=== PATIENT | female | born 1970 | race Caucasian/White ===

== ENCOUNTER 2018-03-29 05:36 | Emergency (ER) | payer BC ==
[2018-03-29] MEDS ORDERED: METOCLOPRAMIDE 10 MG/2mL INJ ONE (06:19)
[2018-03-29] MEDS ORDERED: DIPHENHYDRAMINE 50 MG/ML VIAL ONE (06:20)
[2018-03-29] MEDS ORDERED: NA CHLORIDE 0.9% 1,000 ML ONE (06:20)
[2018-03-29] MEDS ORDERED: KETOROLAC 30 MG/ML INJ ONE (06:20)
--- NOTE | 2018-03-29 07:18 | ER ---
Nurse's Notes [facility] Name: Lorraine Ernandez Age: 47 yrs Sex: Female : 1970 Arrival Date: 03/29/2018 Time: 05:52 Bed 16 Private MD: Diagnosis: Migraine Presentation: 03/29 06:06 Presenting complaint: Patient states: MIGRAINE. Transition of care: patient was not bp received from another setting of care. Onset of symptoms was March 29, 2018 at 04:00. Risk Assessment: Do you want to hurt yourself or someone else? Patient reports no desire to harm self or others. Initial Sepsis Screen: Does the patient meet any 2 criteria? No. Patient's initial sepsis screen is negative. Does the patient have a suspected source of infection? No. Patient's initial sepsis screen is negative. Care prior to arrival: None. 06:06 Method Of Arrival: Ambulatory bp 06:06 Acuity: YU 5 bp Triage Assessment: 06:08 Headache History: The patient has had previous headaches and this one is similar to bp previous episodes. General: Appears in no apparent distress. uncomfortable, obese, Behavior is cooperative, appropriate for age, anxious. Pain: Complains of pain in head Pain currently is 10 out of 10 on a pain scale. Pain began 2 hours ago. Also complains of nausea. EENT: No deficits noted. Neuro: Level of Consciousness is awake, alert, obeys commands, Oriented to person, place, time, situation, Appropriate for age. Cardiovascular: No deficits noted. Respiratory: Airway is patent Respiratory effort is even, unlabored, Respiratory pattern is regular, symmetrical. GI: Reports nausea. : No signs and/or symptoms were reported regarding the genitourinary system. Derm: No deficits noted. Musculoskeletal: Circulation, motion, and sensation intact. Range of motion: intact in all extremities. CIRCUS TRAINER: 06:08 LMP N/A - Hysterectomy bp Historical: - Allergies: 06:08 No Known Allergies; bp - Home Meds: 06:08 Topamax Oral [Active]; Paxil Oral [Active]; bp - PMHx: 06:08 Migraines; Depression; bp - PSHx: 06:08 Hysterectomy; Cholecystectomy; bp - Immunization history:: Adult Immunizations up to date. - Social history:: Smoking status: Patient/guardian denies using tobacco. - Ebola Screening: : Patient negative for fever greater than or equal to 101.5 degrees Fahrenheit, and additional compatible Ebola Virus Disease symptoms Patient denies exposure to infectious person Patient denies travel to an Ebola-affected area in the 21 days before illness onset No symptoms or risks identified at this time. Screenin:11 Abuse screen: Denies threats or abuse. Denies injuries from another. Nutritional bp screening: No deficits noted. Tuberculosis screening: No symptoms or risk factors identified. Fall Risk None identified. Assessment: 06:11 General: SEE TRIAGE NOTE. Pain: Complains of pain in head Pain currently is 10 out of bp 10 on a pain scale. 06:36 Reassessment: Patient appears in no apparent distress at this time. No changes from jd3 previously documented assessment. Patient and/or family updated on plan of care and expected duration. Pain level reassessed. Patient is alert, oriented x 3, equal unlabored respirations, skin warm/dry/pink. 07:32 Reassessment: Patient appears in no apparent distress at this time. Patient and/or iw family updated on plan of care and expected duration. Pain level reassessed. Patient is alert, oriented x 3, equal unlabored respirations, skin warm/dry/pink. Patient states feeling better. Patient states symptoms have improved. Vital Signs: 06:08 BP 110 / 67; Pulse 75; Resp 16; Temp 97.4; Pulse Ox 98% ; Weight 72.57 kg; Height 5 ft. bp 1 in. (154.94 cm); 07:32 BP 108 / 67; Pulse 60; Resp 16; Pulse Ox 100% on R/A; Pain 3/10; iw 06:08 Body Mass Index 30.23 (72.57 kg, 154.94 cm) bp Rebel Coma Score: 06:15 Eye Response: spontaneous(4). Verbal Response: oriented(5). Motor Response: obeys kb commands(6). Total: 15. ED Course: 05:52 Patient arrived in ED. es 05:59 Den Pandya, RN is Primary Nurse. bp 06:05 Primary Nurse role handed off by Den Pandya, NEHA jd3 06:05 Alberto Escobedo RN is Primary Nurse. jd3 06:07 Triage completed. bp 06:09 Lexie Guidry FNP-C is PHCP. kb 06:09 Chaz Aly MD is Attending Physician. kb 06:11 Arm band placed on. bp 06:11 Patient has correct armband on for positive identification. Bed in low position. Call bp light in reach. Side rails up X2. Adult w/ patient. 06:30 Inserted saline lock: 20 gauge in right antecubital area, using aseptic technique. jd3 07:34 Primary Nurse role handed off by Alberto Escobedo RN iw 07:34 Cecilia Joyner, NEHA is Primary Nurse. iw Administered Medications: 06:34 Drug: NS 0.9% 1000 ml Route: IV; Rate: 1000 ml; Site: right antecubital; jd3 07:32 Follow up: IV Status: Completed infusion iw 06:35 Drug: TORadol 30 mg Route: IVP; Site: right antecubital; jd3 07:32 Follow up: Response: No adverse reaction; Pain is decreased iw 06:35 Drug: Benadryl 12.5 mg Route: IVP; Site: right antecubital; jd3 06:35 Drug: Reglan 10 mg Route: IVP; Site: right antecubital; jd3 07:33 Follow up: Response: No adverse reaction; Pain is decreased iw Outcome: 07:17 Discharge ordered by . kb 07:34 Patient left the ED. iw Signatures: Lexie Guidry, PRESS MACHINE FEEDER-C PRESS MACHINE FEEDER-Nery Amin Irene, NEHA SOLOMON iw Alberto Escobedo RN RN jDen Magana RN RN bp
--- NOTE | 2018-03-29 07:18 | EDPHYS ---
Physician Documentation [facility] Name: Lorraine Ernandez Age: 47 yrs Sex: Female : 1970 Arrival Date: 03/29/2018 Time: 05:52 Bed 16 Private MD: ED Physician Chaz Aly HPI: 03/29 06:15 This 47 yrs old Female presents to ER via Ambulatory with complaints of kb Headache. 06:15 The patient complains of pain to the forehead. The patient describes the headache as kb constant. Onset: The symptoms/episode began/occurred this morning, at 04:30. Associated signs and symptoms: Pertinent positives: nausea, Photophobia Pertinent negatives: altered mental status, dizziness, fever, malaise, neck stiffness, paresthesias, rash, sinus congestion, sinus tenderness, vision changes, vision loss, vomiting, weakness, vertigo. Severity of symptoms: At its worst the pain was moderate, in the emergency department the pain is unchanged. Headache History: The patient has had previous headaches and this one is similar to previous episodes. The symptoms are alleviated by nothing. the symptoms are aggravated by lights. The patient has experienced similar episodes in the past, chronically. The patient has not recently seen a physician. Takes topamax for migraines, but no relief this morning. SPINNER HAND: 06:08 LMP N/A - Hysterectomy bp Historical: - Allergies: 06:08 No Known Allergies; bp - Home Meds: 06:08 Topamax Oral [Active]; Paxil Oral [Active]; bp - PMHx: 06:08 Migraines; Depression; bp - PSHx: 06:08 Hysterectomy; Cholecystectomy; bp - Immunization history:: Adult Immunizations up to date. - Social history:: Smoking status: Patient/guardian denies using tobacco. - Ebola Screening: : Patient negative for fever greater than or equal to 101.5 degrees Fahrenheit, and additional compatible Ebola Virus Disease symptoms Patient denies exposure to infectious person Patient denies travel to an Ebola-affected area in the 21 days before illness onset No symptoms or risks identified at this time. ROS: 06:12 Constitutional: Negative for fever, chills, and weight loss, Eyes: Negative for injury, kb pain, redness, and discharge, ENT: Negative for injury, pain, and discharge, Neck: Negative for injury, pain, and swelling, Cardiovascular: Negative for chest pain, palpitations, and edema, Respiratory: Negative for shortness of breath, cough, wheezing, and pleuritic chest pain, Back: Negative for injury and pain, : Negative for injury, bleeding, discharge, and swelling, MS/Extremity: Negative for injury and deformity, Skin: Negative for injury, rash, and discoloration. 06:12 Abdomen/GI: Positive for nausea, Negative for abdominal pain, vomiting, diarrhea. 06:12 Neuro: Positive for headache. Exam: 06:12 Constitutional: This is a well developed, well nourished patient who is awake, alert, kb and in no acute distress. Head/Face: Normocephalic, atraumatic. Eyes: Pupils equal round and reactive to light, extra-ocular motions intact. Lids and lashes normal. Conjunctiva and sclera are non-icteric and not injected. Cornea within normal limits. Periorbital areas with no swelling, redness, or edema. ENT: Nares patent. No nasal discharge, no septal abnormalities noted. Tympanic membranes are normal and external auditory canals are clear. Oropharynx with no redness, swelling, or masses, exudates, or evidence of obstruction, uvula midline. Mucous membranes moist. Neck: Trachea midline, no thyromegaly or masses palpated, and no cervical lymphadenopathy. Supple, full range of motion without nuchal rigidity, or vertebral point tenderness. No Meningismus. Chest/axilla: Normal chest wall appearance and motion. Nontender with no deformity. No lesions are appreciated. Cardiovascular: Regular rate and rhythm with a normal S1 and S2. No gallops, murmurs, or rubs. Normal PMI, no JVD. No pulse deficits. Respiratory: Lungs have equal breath sounds bilaterally, clear to auscultation and percussion. No rales, rhonchi or wheezes noted. No increased work of breathing, no retractions or nasal flaring. Abdomen/GI: Soft, non-tender, with normal bowel sounds. No distension or tympany. No guarding or rebound. No evidence of tenderness throughout. Skin: Warm, dry with normal turgor. Normal color with no rashes, no lesions, and no evidence of cellulitis. MS/ Extremity: Pulses equal, no cyanosis. Neurovascular intact. Full, normal range of motion. Neuro: Awake and alert, GCS 15, oriented to person, place, time, and situation. Cranial nerves II-XII grossly intact. Motor strength 5/5 in all extremities. Sensory grossly intact. Cerebellar exam normal. Normal gait. Vital Signs: 06:08 BP 110 / 67; Pulse 75; Resp 16; Temp 97.4; Pulse Ox 98% ; Weight 72.57 kg; Height 5 ft. bp 1 in. (154.94 cm); 07:32 BP 108 / 67; Pulse 60; Resp 16; Pulse Ox 100% on R/A; Pain 3/10; iw 06:08 Body Mass Index 30.23 (72.57 kg, 154.94 cm) bp Rebel Coma Score: 06:15 Eye Response: spontaneous(4). Verbal Response: oriented(5). Motor Response: obeys kb commands(6). Total: 15. MDM: 06:09 Patient medically screened. kb 06:15 Data reviewed: vital signs, nurses notes. Data interpreted: Pulse oximetry: on room air kb is 98 %. Interpretation: normal. Counseling: I had a detailed discussion with the patient and/or guardian regarding: the historical points, exam findings, and any diagnostic results supporting the discharge/admit diagnosis, the need for outpatient follow up, a family practitioner, a neurologist, to return to the emergency department if symptoms worsen or persist or if there are any questions or concerns that arise at home. 07:18 Response to treatment: the patient's symptoms have resolved after treatment, the patient's pain is gone. 03/29 06:12 Order name: IV Start; Complete Time: 06:34 Administered Medications: 06:34 Drug: NS 0.9% 1000 ml Route: IV; Rate: 1000 ml; Site: right antecubital; jd3 07:32 Follow up: IV Status: Completed infusion iw 06:35 Drug: TORadol 30 mg Route: IVP; Site: right antecubital; jd3 07:32 Follow up: Response: No adverse reaction; Pain is decreased iw 06:35 Drug: Benadryl 12.5 mg Route: IVP; Site: right antecubital; jd3 06:35 Drug: Reglan 10 mg Route: IVP; Site: right antecubital; jd3 07:33 Follow up: Response: No adverse reaction; Pain is decreased iw Disposition: 12:38 Co-signature as Attending Physician, Chaz Aly MD I agree with the assessment and wa plan of care. Disposition: 03/29/18 07:17 Discharged to Home. Impression: Migraine. - Condition is Stable. - Discharge Instructions: Migraine Headache, [id number]. - Medication Reconciliation Form, Thank You Letter, Antibiotic Education, Prescription Opioid Use, Work release form form. - Follow up: Emergency Department; When: As needed; Reason: Worsening of condition. Follow up: Private Physician; When: 2 - 3 days; Reason: Recheck today's complaints, Continuance of care, Re-evaluation by your physician. Signatures: Lexie Guidry, OFFICE MACHINES TEACHER-C OFFICE MACHINES TEACHER-Ckb Cecilia Joyner, RN RN Chaz Duong MD MD wa Davies, Jonathon RN RN jDen Magana RN RN bp Corrections: (The following items were deleted from the chart) 06:15 06:12 Neuro: Positive for headache, stephan 07:34 07:17 03/29/2018 07:17 Discharged to Home. Impression: Migraine. Condition is Stable. iw Forms are Medication Reconciliation Form, Thank You Letter, Antibiotic Education, Prescription Opioid Use. Follow up: Emergency Department; When: As needed; Reason: Worsening of condition. Follow up: Private Physician; When: 2 - 3 days; Reason: Recheck today's complaints, Continuance of care, Re-evaluation by your physician. kb
== END 2018-03-29 07:34 | disposition home or self-care (01) ==
LOC: ER 05:36
DX: G43.909 Migraine, unspecified, not intractable, without status migrainosus (principal); F32.9 Major depressive disorder, single episode, unspecified
CPT/HCPCS: 96361; 96374; 96375; 99283; J2765; J7030

== ENCOUNTER 2018-07-05 05:27 | Emergency (ER) | payer BC ==
[2018-07-05] MEDS ORDERED: KETOROLAC 30 MG/ML INJ ONE (06:22)
[2018-07-05] MEDS ORDERED: PROMETHAZINE 25 MG TABLET ONE (06:22)
--- NOTE | 2018-07-05 06:26 | EDPHYS ---
Physician Documentation [facility] Name: Lorraine Ernandez Age: 47 yrs Sex: Female : 1970 Arrival Date: 07/05/2018 Time: 05:30 Bed 7 Private MD: ED Physician Mahad Ramirez HPI: 07/05 06:33 This 47 yrs old Female presents to ER via Ambulatory with complaints of snw Headache. 06:33 The patient complains of pain to the right eye and left eye. The patient describes the snw headache as pounding. Onset: The symptoms/episode began/occurred gradually, yesterday. Associated signs and symptoms: Pertinent positives: nausea. Severity of symptoms: At its worst the pain was moderate. Headache History: The patient has had previous headaches and this one is similar to previous episodes. The symptoms are alleviated by remaining still. The patient has experienced similar episodes in the past. It is unknown whether or not the patient has recently seen a physician. TEST RIDER: 05:38 LMP N/A - Hysterectomy ak1 Historical: - Allergies: 05:42 No Known Allergies; ak1 - Home Meds: 05:42 Paxil Oral [Active]; Topamax Oral [Active]; ak1 - PMHx: 05:42 Depression; Migraines; ak1 - PSHx: 05:42 Hysterectomy; Cholecystectomy; Bladder suspension; Lithotripsy; ak1 - Immunization history:: Adult Immunizations unknown. - Social history:: Smoking status: Patient/guardian denies using tobacco. - Ebola Screening: : No symptoms or risks identified at this time. ROS: 06:32 Constitutional: Negative for fever, chills, and weight loss, Eyes: Negative for injury, snw pain, redness, and discharge, ENT: Negative for injury, pain, and discharge, Neck: Negative for injury, pain, and swelling, Cardiovascular: Negative for chest pain, palpitations, and edema, Respiratory: Negative for shortness of breath, cough, wheezing, and pleuritic chest pain, Abdomen/GI: Negative for abdominal pain, nausea, vomiting, diarrhea, and constipation, Back: Negative for injury and pain, : Negative for injury, bleeding, discharge, and swelling, MS/Extremity: Negative for injury and deformity, Skin: Negative for injury, rash, and discoloration, Psych: Negative for depression, anxiety, suicide ideation, homicidal ideation, and hallucinations. 06:32 Neuro: Positive for headache. Exam: 06:32 Constitutional: This is a well developed, well nourished patient who is awake, alert, snw and in no acute distress. Head/Face: Normocephalic, atraumatic. Eyes: Pupils equal round and reactive to light, extra-ocular motions intact. Lids and lashes normal. Conjunctiva and sclera are non-icteric and not injected. Cornea within normal limits. Periorbital areas with no swelling, redness, or edema. ENT: Nares patent. No nasal discharge, no septal abnormalities noted. Tympanic membranes are normal and external auditory canals are clear. Oropharynx with no redness, swelling, or masses, exudates, or evidence of obstruction, uvula midline. Mucous membranes moist. Neck: Trachea midline, no thyromegaly or masses palpated, and no cervical lymphadenopathy. Supple, full range of motion without nuchal rigidity, or vertebral point tenderness. No Meningismus. Chest/axilla: Normal chest wall appearance and motion. Nontender with no deformity. No lesions are appreciated. Cardiovascular: Regular rate and rhythm with a normal S1 and S2. No gallops, murmurs, or rubs. Normal PMI, no JVD. No pulse deficits. Respiratory: Lungs have equal breath sounds bilaterally, clear to auscultation and percussion. No rales, rhonchi or wheezes noted. No increased work of breathing, no retractions or nasal flaring. Abdomen/GI: Soft, non-tender, with normal bowel sounds. No distension or tympany. No guarding or rebound. No evidence of tenderness throughout. Back: No spinal tenderness. No costovertebral tenderness. Full range of motion. Skin: Warm, dry with normal turgor. Normal color with no rashes, no lesions, and no evidence of cellulitis. MS/ Extremity: Pulses equal, no cyanosis. Neurovascular intact. Full, normal range of motion. Neuro: Awake and alert, GCS 15, oriented to person, place, time, and situation. Cranial nerves II-XII grossly intact. Motor strength 5/5 in all extremities. Sensory grossly intact. Cerebellar exam normal. Normal gait. Psych: Awake, alert, with orientation to person, place and time. Behavior, mood, and affect are within normal limits. Vital Signs: 05:38 BP 107 / 59; Pulse 94; Resp 18; Temp 97.2(TE); Pulse Ox 98% on R/A; Weight 74.84 kg ak1 (R); Height 5 ft. 1 in. (154.94 cm) (R); Pain 7/10; 06:20 BP 98 / 63; Pulse 61; Resp 18; Pulse Ox 97% on R/A; aa1 05:38 Body Mass Index 31.18 (74.84 kg, 154.94 cm) ak1 Rebel Coma Score: 06:33 Eye Response: spontaneous(4). Verbal Response: oriented(5). Motor Response: obeys snw commands(6). Total: 15. MDM: 05:59 Patient medically screened. snw 06:33 Data reviewed: vital signs, nurses notes. Data interpreted: Pulse oximetry: on room air snw is 97 %. Interpretation: normal. Counseling: I had a detailed discussion with the patient and/or guardian regarding: the historical points, exam findings, and any diagnostic results supporting the discharge/admit diagnosis, the need for outpatient follow up, to return to the emergency department if symptoms worsen or persist or if there are any questions or concerns that arise at home. Special discussion: Based on the history and exam findings, there is no indication for further emergent testing or inpatient evaluation. I discussed with the patient/guardian the need to see the neurologist for further evaluation of the symptoms. I discussed with the patient/guardian the need to see the primary care provider for further evaluation of the symptoms. Administered Medications: 06:20 Drug: TORadol 60 mg Route: IM; Site: left gluteus; aa1 06:48 Follow up: Response: No adverse reaction; Pain is decreased tl2 06:20 Drug: Phenergan 25 mg Route: PO; aa1 06:48 Follow up: Response: No adverse reaction tl2 Disposition: 07/05/18 06:20 Discharged to Home. Impression: Headache, Reaction to severe stress, unspecified. - Condition is Stable. - Discharge Instructions: Migraine Headache. - Prescriptions for orphenadrine citrate 100 mg Oral Tablet Sustained Release - take 1 tablet by ORAL route 2 times per day As needed; 20 tablet. promethazine 25 mg Oral Tablet - take 1 tablet by ORAL route every 6 hours As needed; 20 tablet. - Work release form, Medication Reconciliation Form, Thank You Letter, Antibiotic Education, Prescription Opioid Use form. - Follow up: Private Physician; When: 2 - 3 days; Reason: Recheck today's complaints, Continuance of care, Re-evaluation by your physician. Follow up: Emergency Department; When: As needed; Reason: Worsening of condition. Addendum: 07/08/2018 10:38 Co-signature as Attending Physician, Mahad Ramirez MD. g s Signatures: Lore Zaman RN RN aa1 Adelina Doran, STUDIO ARTIST-C STUDIO ARTIST-Csnw Maddie Ghosh RN RN ak1 Oly Oropeza RN RN tl2 Mahad Ramirez MD MD Corrections: (The following items were deleted from the chart) 07/05 06:48 06:20 07/05/2018 06:20 Discharged to Home. Impression: Headache; Reaction to severe tl2 stress, unspecified. Condition is Stable. Forms are Medication Reconciliation Form, Thank You Letter, Antibiotic Education, Prescription Opioid Use. Follow up: Private Physician; When: 2 - 3 days; Reason: Recheck today's complaints, Continuance of care, Re-evaluation by your physician. Follow up: Emergency Department; When: As needed; Reason: Worsening of condition. snw
--- NOTE | 2018-07-05 06:26 | ER ---
Nurse's Notes [facility] Name: Lorraine Ernandez Age: 47 yrs Sex: Female : 1970 Arrival Date: 07/05/2018 Time: 05:30 Bed 7 Private MD: Diagnosis: Headache;Reaction to severe stress, unspecified Presentation: 07/05 05:39 Presenting complaint: Patient states: headache constant behind her temples. pt with hx ak1 migraines. pt stated pain started yesterday after getting "pissed off at work and having issues with my gf" pt c/o nausea, denies vomiting. Transition of care: patient was not received from another setting of care. Onset of symptoms was July 04, 2018. Risk Assessment: Do you want to hurt yourself or someone else? Patient reports no desire to harm self or others. Initial Sepsis Screen: Does the patient meet any 2 criteria? No. Patient's initial sepsis screen is negative. Does the patient have a suspected source of infection? No. Patient's initial sepsis screen is negative. Care prior to arrival: None. 05:39 Method Of Arrival: Ambulatory ak1 05:39 Acuity: YU 3 ak1 Triage Assessment: 05:42 Headache History: The patient has had previous headaches and this one is similar to ak1 previous episodes. General: Appears in no apparent distress. Behavior is calm, cooperative. Pain: Pain currently is 7 out of 10 on a pain scale. Pain began 1 day ago. Also complains of photophobia. 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 Gait is steady, Speech is normal, Facial symmetry appears normal. 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 - Social history:: Smoking status: Patient/guardian denies using tobacco. - Ebola Screening: : No symptoms or risks identified at this time. Screenin:43 Abuse screen: Denies threats or abuse. Denies injuries from another. Nutritional ak1 screening: No deficits noted. Tuberculosis screening: No symptoms or risk factors identified. Fall Risk None identified. Assessment: 05:44 General: Appears in no apparent distress. uncomfortable, Behavior is calm, cooperative, aa1 appropriate for age. Pain: Complains of pain in headache. Neuro: Level of Consciousness is awake, alert, obeys commands, Oriented to person, place, time, situation, Reports headache Denies dizziness. Cardiovascular: Denies chest pain. Respiratory: Airway is patent Respiratory effort is even, unlabored, Respiratory pattern is regular, symmetrical. GI: Reports nausea, Patient currently denies vomiting. : No signs and/or symptoms were reported regarding the genitourinary system. Derm: Skin is pink, warm \\T\\ dry. 06:34 Reassessment: Patient appears in no apparent distress at this time. Patient and/or tl2 family updated on plan of care and expected duration. Pain level reassessed. Patient is alert, oriented x 3, equal unlabored respirations, skin warm/dry/pink. Pt verbalized understanding of discharge instructions, need for follow up and prescription usage. Vital Signs: 05:38 BP 107 / 59; Pulse 94; Resp 18; Temp 97.2(TE); Pulse Ox 98% on R/A; Weight 74.84 kg ak1 (R); Height 5 ft. 1 in. (154.94 cm) (R); Pain 7/10; 06:20 BP 98 / 63; Pulse 61; Resp 18; Pulse Ox 97% on R/A; aa1 05:38 Body Mass Index 31.18 (74.84 kg, 154.94 cm) ak1 [place] Coma Score: 06:33 Eye Response: spontaneous(4). Verbal Response: oriented(5). Motor Response: obeys snw commands(6). Total: 15. ED Course: 05:30 Patient arrived in ED. es 05:38 Arm band placed on Patient placed in an exam room, on a stretcher, on pulse oximetry, ak1 Patient notified of wait time. 05:41 Triage completed. ak1 05:43 Lore Zaman, RN is Primary Nurse. aa1 05:43 Patient has correct armband on for positive identification. Bed in low position. Call ak1 light in reach. Side rails up X 1. Pulse ox on. NIBP on. 05:59 Adelina Doran [facility]-C [facility]. snw 05:59 Mahad Ramirez MD is Attending Physician. snw 06:34 No provider procedures requiring assistance completed. Patient did not have IV access tl2 during this emergency room visit. Administered Medications: 06:20 Drug: TORadol 60 mg Route: IM; Site: left gluteus; aa1 06:48 Follow up: Response: No adverse reaction; Pain is decreased tl2 06:20 Drug: Phenergan 25 mg Route: PO; aa1 06:48 Follow up: Response: No adverse reaction tl2 Outcome: 06:20 Discharge ordered by . snw 06:34 Discharged to home ambulatory. tl2 06:34 Condition: stable 06:34 Discharge instructions given to patient, Instructed on discharge instructions, follow up and referral plans. medication usage, Demonstrated understanding of instructions, follow-up care, medications, Prescriptions given X 2. 06:48 Patient left the ED. tl2 Signatures: Lore Zaman RN RN aa1 Adelina Doran FNP-C FNP-Nery Coronel Amber, RN RN ak1 Oly Oropeza RN RN tl2
== END 2018-07-05 06:48 | disposition home or self-care (01) ==
LOC: ER 05:27
DX: R51 Headache (principal); F43.9 Reaction to severe stress, unspecified; F32.9 Major depressive disorder, single episode, unspecified; Z79.899 Other long term (current) drug therapy
CPT/HCPCS: 96372; 99283

== ENCOUNTER 2018-10-22 06:40 | Emergency (ER) | payer BC ==
[2018-10-22] MEDS ORDERED: KETOROLAC 30 MG/ML INJ ONE (07:11)
[2018-10-22] MEDS ORDERED: NA CHLORIDE 0.9% 1,000 ML ONE (07:12)
[2018-10-22] MEDS ORDERED: SIMETHICONE 80 MG TAB PO ONE (07:15)
[2018-10-22 07:25] LABS: Absolute Lymphocytes (CBC) 2.1 K/uL (0.7-4.9); Absolute Monocytes 0.7 K/uL (0.1-1.3); Basophils % 0.8 % (0-1.3); Eosinophils % 3.4 % (0-4.4); Hematocrit 40.5 % (36.0-45.0); MPV 7.9 fL (7.6-11.3); Monocytes % 9.4 % (3.3-12.3); RBC Red Blood Cell Count 4.48 M/uL (3.86-4.86)
[2018-10-22 07:48] LABS: BUN Blood Urea Nitrogen 11 mg/dL (7-18); Bicarbonate 24 mmol/L (21-32); Glucose Level 108 mg/dL (74-106); Potassium 3.7 mmol/L (3.5-5.1); Sodium Level 140 mmol/L (136-145)
--- NOTE | 2018-10-22 08:06 | RAD REPORT ---
EXAM DESCRIPTION: CT - Stone Protocol - 10/22/2018 7:16 am CLINICAL HISTORY: Flank pain. Constipation;Abd pain COMPARISON: Stone Protocol dated 12/19/2017 TECHNIQUE: Axial images were obtained without oral or IV contrast. Lack of contrast limits solid org an and vascular assessment. The [id number] spans the entirety of the system partially obscuring uppermost abdomen and lung bases. Coronal reformatted images were obtained and reviewed. All CT scans are performed using dose optimization technique as appropriate and may include automated exposure control or mA/KV adjustment according to patient size. FINDINGS: The lower lung cherry are clear. Cholecystectomy clips. 5 cm liver cyst suspected left lobe liver. The spleen is normal in size. The p ancreas and adrenal glands are normal. No pathologic lymphadenopathy in the abdomen or pelvis. Punctate calculus is seen upper pole right kidney. No hydronephrosis. No bowel obstruction, free air, free fluid or abscess. Sigmoid diverticulosis coli is present without diverticulitis.Moderate fecal retention in the colon seen. The appendix is normal. No significant bony abnormality. IMPRESSION: Prominent fecal retention in the colon. Punctate right renal calculus without hydronephrosis.
[2018-10-22 08:34] LABS: Urine Bacteria <20 /HPF (<20)
[2018-10-22 08:35] LABS: Urine Culture Reflex Order NOT NEEDED
[2018-10-22 08:36] LABS: Calcium Oxalate Crystals- Ur FEW (NONE SEEN)
[2018-10-22] MEDS ORDERED: BISACODYL E.C. 5 MG TAB PO ONE (08:42)
[2018-10-22] MEDS ORDERED: BISACODYL 10 MG RECTAL SUPP ONE (08:43)
--- NOTE | 2018-10-22 08:49 | ER ---
Nurse's Notes [facility] Name: Lorraine Ernandez Age: 47 yrs Sex: Female : 1970 Arrival Date: 10/22/2018 Time: 06:41 Bed 6 Private MD: Diagnosis: Unspecified abdominal pain;Constipation, unspecified Presentation: 10/22 06:50 Presenting complaint: Patient states: she is having abdominal pain since midnight bb denies nausea or vomiting, last BM was yesterday. Transition of care: patient was not received from another setting of care. Onset of symptoms was October 22, 2018. Risk Assessment: Do you want to hurt yourself or someone else? Patient reports no desire to harm self or others. Initial Sepsis Screen: Does the patient meet any 2 criteria? No. Patient's initial sepsis screen is negative. Does the patient have a suspected source of infection? No. Patient's initial sepsis screen is negative. Care prior to arrival: None. 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 - Social history:: Smoking status: Patient/guardian denies using tobacco. - Ebola Screening: : No symptoms or risks identified at this time. Screenin:05 Abuse screen: Denies threats or abuse. Denies injuries from another. Nutritional sv screening: No deficits noted. Tuberculosis screening: No symptoms or risk factors identified. Fall Risk None identified. Assessment: 07:05 General: Appears in no apparent distress. uncomfortable, well groomed, well developed, sv Behavior is calm, cooperative, appropriate for age. Pain: Complains of pain in left lower quadrant and right lower quadrant Pain currently is 8 out of 10 on a pain scale. Is continuous. Neuro: Level of Consciousness is awake, alert, obeys commands, Oriented to person, place, time, situation, Moves all extremities. Full function Gait is steady. Respiratory: Respiratory effort is even, unlabored, Respiratory pattern is regular, symmetrical. GI: Abdomen is round Abd is soft X 4 quads Abdomen is tender to palpation in right lower quadrant and left lower quadrant. Derm: Skin is pink, warm \T\ dry. Musculoskeletal: Range of motion: intact in all extremities. 08:02 Reassessment: Patient appears in no apparent distress at this time. Patient and/or sv family updated on plan of care and expected duration. Pain level reassessed. Patient is alert, oriented x 3, equal unlabored respirations, skin warm/dry/pink. 08:39 Reassessment: Patient appears in no apparent distress at this time. Patient and/or sv family updated on plan of care and expected duration. Pain level reassessed. Patient is alert, oriented x 3, equal unlabored respirations, skin warm/dry/pink. Patient states feeling better. Patient states symptoms have improved. 08:56 Reassessment: Patient appears in no apparent distress at this time. Patient and/or sv family updated on plan of care and expected duration. Pain level reassessed. Patient is alert, oriented x 3, equal unlabored respirations, skin warm/dry/pink. Vital Signs: 07:07 BP 119 / 81; Pulse 80; Resp 16 S; Temp 98.8(O); Pulse Ox 98% on R/A; Weight 72.57 kg bb (R); Height 5 ft. 1 in. (154.94 cm) (R); Pain 8/10; 08:00 BP 120 / 61; Pulse 55; Resp 18; Pulse Ox 100% ; sv 08:15 Pain 6/10; sv 08:43 BP 103 / 65; Pulse 69; Resp 18; Pulse Ox 100% ; sv 07:07 Body Mass Index 30.23 (72.57 kg, 154.94 cm) bb ED Course: 06:41 Patient arrived in ED. ds1 06:42 Adelina Doran FNP-C [facility]. snw 06:42 Catracho Green MD is Attending Physician. snw 07:05 Patient has correct armband on for positive identification. Placed in gown. Bed in low sv position. Call light in reach. Adult w/ patient. Pulse ox on. NIBP on. Door closed. Head of bed elevated. 07:05 Initial lab(s) drawn, by me, sent to lab. Inserted saline lock: 20 gauge in right sv antecubital area, using aseptic technique. Blood collected. Flushed right antecubital with 5 ml normal saline. 07:06 Triage completed. bb 07:07 Arm band placed on Patient placed in an exam room, on a stretcher, on pulse oximetry. bb 07:13 Lisbeth Hendrix RN is Primary Nurse. sv 07:13 Patient moved to NE via wheelchair. sv 07:15 CT completed. Patient tolerated procedure well. Patient moved back from NE. sw 07:16 CT Stone Protocol In Process Unspecified. EDMS 08:56 No provider procedures requiring assistance completed. IV discontinued, intact, sv bleeding controlled, No redness/swelling at site. Pressure dressing applied. Administered Medications: 08:02 Drug: NS 0.9% 1000 ml Route: IV; Rate: 1 bolus; Site: right antecubital; sv 08:38 Follow up: Response: No adverse reaction; IV Status: Completed infusion; IV Intake: sv 1000ml 08:02 Drug: TORadol 30 mg Route: IVP; Site: right antecubital; sv 08:15 Follow up: Pain 6/10 Adult; Response: No adverse reaction; Pain is decreased sv 08:09 Drug: Simethicone 120 mg Route: PO; sv 08:38 Follow up: Response: No adverse reaction sv 08:38 Drug: Dulcolax Suppository 10 mg Route: FL; sv 08:47 Follow up: Response: No adverse reaction sv 08:38 Drug: Bisacodyl 5 mg Route: PO; sv 08:47 Follow up: Response: No adverse reaction sv 08:38 Drug: Bisacodyl 5 mg Route: PO; sv 08:47 Follow up: Response: No adverse reaction sv Intake: 08:38 IV: 1000ml; Total: 1000ml. sv Outcome: 08:49 Discharge ordered by . snw 08:56 Discharged to home ambulatory, with family. sv 08:56 Condition: stable 08:56 Discharge instructions given to patient, Instructed on discharge instructions, follow up and referral plans. medication usage, Demonstrated understanding of instructions, follow-up care, medications, Prescriptions given X 2. 08:57 Patient left the ED. sv Signatures: Dispatcher MedHo EDTN Lisbeth Hendrix RN RN sv Adelina Doran, GROUND WIRER-C GROUND WIRER-Csnw Jasmyne Daily ds1 Janina Dey, RN RN bb Marisela Chacon sw
--- NOTE | 2018-10-22 08:50 | EDPHYS ---
Physician Documentation [facility] Name: Lorraine Ernandez Age: 47 yrs Sex: Female : 1970 Arrival Date: 10/22/2018 Time: 06:41 Bed 6 Private MD: ED Physician Catracho Green HPI: 10/22 07:44 This 47 yrs old Female presents to ER via Ambulatory with complaints of snw Abdominal Pain. 07:44 The patient presents with abdominal pain in the lower abdomen. Onset: The snw symptoms/episode began/occurred suddenly, at 00:00. The symptoms do not radiate. Associated signs and symptoms: Pertinent positives: cramping like labor. The symptoms are described as crampy. Severity of pain: At its worst the pain was moderate severe in the emergency department the pain is unchanged. The patient has experienced similar episodes in the past. The patient has not recently seen a physician. hx of chronic constipation, UTI, and kidney stones. 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 - Social history:: Smoking status: Patient/guardian denies using tobacco. - Ebola Screening: : No symptoms or risks identified at this time. ROS: 07:44 Constitutional: Negative for fever, chills, and weight loss, Eyes: Negative for injury, snw pain, redness, and discharge, ENT: Negative for injury, pain, and discharge, Neck: Negative for injury, pain, and swelling, Cardiovascular: Negative for chest pain, palpitations, and edema, Respiratory: Negative for shortness of breath, cough, wheezing, and pleuritic chest pain, Back: Negative for injury and pain, : Negative for injury, bleeding, discharge, and swelling, MS/Extremity: Negative for injury and deformity, Skin: Negative for injury, rash, and discoloration, Neuro: Negative for headache, weakness, numbness, tingling, and seizure. 07:44 Abdomen/GI: Positive for abdominal pain, constipation, abdominal cramps, feels like labor since 0000. Exam: 07:44 Constitutional: This is a well developed, well nourished patient who is awake, alert, snw and in no acute distress. Head/Face: Normocephalic, atraumatic. Eyes: Pupils equal round and reactive to light, extra-ocular motions intact. Lids and lashes normal. Conjunctiva and sclera are non-icteric and not injected. Cornea within normal limits. Periorbital areas with no swelling, redness, or edema. ENT: Nares patent. No nasal discharge, no septal abnormalities noted. Tympanic membranes are normal and external auditory canals are clear. Oropharynx with no redness, swelling, or masses, exudates, or evidence of obstruction, uvula midline. Mucous membranes moist. Neck: Trachea midline, no thyromegaly or masses palpated, and no cervical lymphadenopathy. Supple, full range of motion without nuchal rigidity, or vertebral point tenderness. No Meningismus. Chest/axilla: Normal chest wall appearance and motion. Nontender with no deformity. No lesions are appreciated. Cardiovascular: Regular rate and rhythm with a normal S1 and S2. No gallops, murmurs, or rubs. Normal PMI, no JVD. No pulse deficits. Respiratory: Lungs have equal breath sounds bilaterally, clear to auscultation and percussion. No rales, rhonchi or wheezes noted. No increased work of breathing, no retractions or nasal flaring. Back: No spinal tenderness. No costovertebral tenderness. Full range of motion. Skin: Warm, dry with normal turgor. Normal color with no rashes, no lesions, and no evidence of cellulitis. MS/ Extremity: Pulses equal, no cyanosis. Neurovascular intact. Full, normal range of motion. Neuro: Awake and alert, GCS 15, oriented to person, place, time, and situation. Cranial nerves II-XII grossly intact. Motor strength 5/5 in all extremities. Sensory grossly intact. Cerebellar exam normal. Normal gait. 07:44 Abdomen/GI: Inspection: distension, Bowel sounds: normal, Palpation: mild abdominal tenderness, in the right lower quadrant and left lower quadrant. Vital Signs: 07:07 BP 119 / 81; Pulse 80; Resp 16 S; Temp 98.8(O); Pulse Ox 98% on R/A; Weight 72.57 kg bb (R); Height 5 ft. 1 in. (154.94 cm) (R); Pain 8/10; 08:00 BP 120 / 61; Pulse 55; Resp 18; Pulse Ox 100% ; sv 08:15 Pain 6/10; sv 08:43 BP 103 / 65; Pulse 69; Resp 18; Pulse Ox 100% ; sv 07:07 Body Mass Index 30.23 (72.57 kg, 154.94 cm) bb MDM: 06:54 Patient medically screened. snw 08:51 Data reviewed: vital signs, nurses notes. Data interpreted: Pulse oximetry: on room air snw is 100 %. Interpretation: normal. Counseling: I had a detailed discussion with the patient and/or guardian regarding: the historical points, exam findings, and any diagnostic results supporting the discharge/admit diagnosis, lab results, radiology results, the need for outpatient follow up, to return to the emergency department if symptoms worsen or persist or if there are any questions or concerns that arise at home. Special discussion: Based on the patient's Hx, exam, and Dx evaluation, there is no indication for emergent surgery or inpatient Tx. It is understood by the patient/guardian that if the Sx's persist or worsen they need to return immediately for re-evaluation. Based on the history and exam findings, there is no indication for further emergent testing or inpatient evaluation. I discussed with the patient/guardian the need to see the television specialist for further evaluation of the symptoms. I discussed with the patient/guardian the need to see the primary care provider for further evaluation of the symptoms. 10/22 06:53 Order name: CBC with Diff; Complete Time: 07:43 snw 10/22 06:53 Order name: Chem 7; Complete Time: 07:50 snw 10/22 06:53 Order name: Urine Culture 10/22 06:53 Order name: Urine Microscopic Only; Complete Time: 08:48 snw 10/22 07:52 Order name: Urine Dipstick--Ancillary (enter results) 10/22 07:53 Order name: Urine --Ancillary (enter results) 10/22 06:53 Order name: CT Stone Protocol; Complete Time: 08:21 snw 10/22 06:53 Order name: Urine Test (obtain specimen); Complete Time: 08:01 [facility] 10/22 06:53 Order name: Urine Dipstick-Ancillary (obtain specimen); Complete Time: 08:01 snw 10/22 07:15 Order name: IV Saline Lock; Complete Time: 07:15 sv 10/22 07:15 Order name: Labs collected and sent; Complete Time: 07:15 sv Administered Medications: 08:02 Drug: NS 0.9% 1000 ml Route: IV; Rate: 1 bolus; Site: right antecubital; sv 08:38 Follow up: Response: No adverse reaction; IV Status: Completed infusion; IV Intake: sv 1000ml 08:02 Drug: TORadol 30 mg Route: IVP; Site: right antecubital; sv 08:15 Follow up: Pain 6/10 Adult; Response: No adverse reaction; Pain is decreased sv 08:09 Drug: Simethicone 120 mg Route: PO; sv 08:38 Follow up: Response: No adverse reaction sv 08:38 Drug: Dulcolax Suppository 10 mg Route: [place]; sv 08:47 Follow up: Response: No adverse reaction sv 08:38 Drug: Bisacodyl 5 mg Route: PO; sv 08:47 Follow up: Response: No adverse reaction sv 08:38 Drug: Bisacodyl 5 mg Route: PO; sv 08:47 Follow up: Response: No adverse reaction sv Disposition: 10/22/18 08:49 Discharged to Home. Impression: Unspecified abdominal pain, Constipation, unspecified. - Condition is Stable. - Discharge Instructions: Abdominal Pain, Adult, Constipation, Adult, High-Fiber Diet. - Prescriptions for Gas- X Ultra-Strength - take 1 unit by ORAL route 1-3 times daily; 1 box. Miralax 17 gram/dose Oral - take 1 packet by ORAL route once daily dilute powder in 8 ounces of water or juice; 1 box. - Work release form, Medication Reconciliation Form, Thank You Letter, Antibiotic Education, Prescription Opioid Use form. - Follow up: Private Physician; When: 2 - 3 days; Reason: Recheck today's complaints, Continuance of care, Re-evaluation by your physician. Follow up: Emergency Department; When: As needed; Reason: Worsening of condition. Signatures: Dispatcher MedHo Lisbeth Garza RN RN Adelina Miranda, HIGH LIFT OPERATOR-C HIGH LIFT OPERATOR-Csnw Janina Dey, RN RN bb Corrections: (The following items were deleted from the chart) 08:57 08:49 10/22/2018 08:49 Discharged to Home. Impression: Unspecified abdominal pain; sv Constipation, unspecified. Condition is Stable. Forms are Medication Reconciliation Form, Thank You Letter, Antibiotic Education, Prescription Opioid Use. Follow up: Private Physician; When: 2 - 3 days; Reason: Recheck today's complaints, Continuance of care, Re-evaluation by your physician. Follow up: Emergency Department; When: As needed; Reason: Worsening of condition. snw
[2018-10-22 12:12] LABS: Urine Specific Gravity >1.030 (1.005-1.030)
[2018-10-22 12:12] LABS: Urine Blood TRACE (NEG); Urine Glucose NEGATIVE (NEG); Urine Protein NEGATIVE (NEG); Urine Specific Gravity >1.030 (1.005-1.030); Urine pH 5.5 (5.0-7.0)
== END 2018-10-22 08:57 | disposition home or self-care (01) ==
LOC: ER 06:40
DX: K59.00 Constipation, unspecified (principal); F32.9 Major depressive disorder, single episode, unspecified
CPT/HCPCS: 36415; 74176; 76377; 80048; 81003; 81015; 81025; 85025; 87086; 87088; 96361; 96374; 99284; J7030